=== PATIENT | female | born 1975 | race Caucasian/White ===

== ENCOUNTER 2016-06-03 12:28 | Emergency (ER) ==
[2016-06-03 12:43] VITALS: BP 120/90; TEMP 98.2; BMI 20.5
[2016-06-03] MEDS ORDERED: MORPHINE 4 MG/ML SYRINGE IVP STA (12:46)
[2016-06-03] MEDS ORDERED: ZOFRAN 4 MG/2 ML IVP STA (12:46)
[2016-06-03 13:05] LABS: BASOPHILS % (AUTO) 0.3 % (0.0-3.0); EOSINOPHILS # (AUTO) 0.3 K/ul (0.0-0.7); EOSINOPHILS % (AUTO) 2.8 % (0.0-7.0); HEMATOCRIT 38.7 % (37.0-47.0); HEMOGLOBIN 12.9 g/dl (12.0-16.0); LYMPHOCYTES # (AUTO) 3.4 K/uL (0.60-3.4); LYMPHOCYTES % (AUTO) 36.2 (10.0-50.0); MEAN CORPUSCULAR HEMOGLOBIN 32.1 pg (27.0-31.0); MEAN CORPUSCULAR HGB CONC 33.3 (31.8-35.4); MEAN CORPUSCULAR VOLUME 96.3 fl (81.0-99.0); MONOCYTES # (AUTO) 0.4 K/uL (0.4-2.0); NEUTROPHILS # (AUTO) 5.3 K/ul (2.0-6.9); NEUTROPHILS % (AUTO) 55.7; PLATELET COUNT 373 10^3/uL (140-440); RED BLOOD COUNT 4.02 10^6/ul (4.20-5.40); WHITE BLOOD COUNT 9.44 K/ul (4.6-10.2)
[2016-06-03 13:23] LABS: SERUM PREGNANCY INTERNAL QC INTERNAL QC VALID
[2016-06-03 13:36] LABS: ALANINE AMINOTRANSFERASE 23 U/L (12-78); ALBUMIN 3.7 g/dL (3.4-5.0); ALBUMIN/GLOBULIN RATIO 1.03; ALKALINE PHOSPHATASE 63 U/L (42-98); ASPARTATE AMINO TRANSFERASE 19 U/L (15-37); BILIRUBIN,TOTAL 0.22 mg/dL (0.00-1.20); BLOOD UREA NITROGEN 13 mg/dL (7-18); BUN/CREATININE RATIO 16.88; CARBON DIOXIDE 22 mmol/L (21-32); CHLORIDE 110 mmol/L (98-107); CREATINE KINASE 41 U/L; CREATININE 0.77 mg/dL (0.60-1.30); GLUCOSE 88 mg/dL (70-110); SODIUM 141 mmol/L (136-145); TOTAL PROTEIN 7.3 g/dL (6.4-8.2)
--- NOTE | 2016-06-03 14:35 | CT ---
EXAM: CTA chest HISTORY: Chest pain radiating to the back and under scapula bilaterally. Patient with history of max mpectomy COMPARISON: CT chest 07/10/2013 TECHNIQUE: CTA of the chest was performed from the lung apices to the upper abdomen after 125 ml of Omnipaque IV contrast was administered using PE protocol. 3-D imaging was also provided. FINDINGS: There is no filling defect in the pulmonary arteries to the level of the subsegmental pul monary arteries. The heart is normal without signs of ventricular strain. The aorta is unremarkabl e with no stenosis, dissection or aneurysm. The heart is unremarkable. There is no mediastinal or hilar lymphadenopathy. The thyroid is unremarkable. There is no pneumothorax or pleural effusion. There is mild apical pleural thickening. There is no consolidation, nodule or mass. There is no abnormal ground-glass. The airways are patent. Soft tissues in the upper abdomen are unremarkable. The osseous structures are unremarkable. IMPRESSION: 1. No acute abnormality of the aorta, dissection, stenosis or aneurysm. 2. No central pulmonary embolism. 3. No acute cardiopulmonary process or consolidation.
--- NOTE | 2016-06-03 14:48 | ED.PDOC ---
General ED Provider: Dr. WILFRIDO OLEARY Chief Complaint: Chest Pain Stated Complaint: chest pain Time Seen by Physician: 12:30 (may and robtana present at all times ) Mode of Arrival: Wheelchair Information Source: Patient Exam Limitations: No limitations Primary Care Provider: MARY BETH FREY Nursing and Triage Documentation Reviewed and Agree: Yes (no trauma ) Cardiovascular Complaint Exam - Chest Pain Complaint/Exam Onset: Gradual Duration: today Symptoms Are: Still present Timing: Constant Initial Severity: Moderate Current Severity: Moderate Location: Reports: Midsternal Pain Radiates: Reports: None Character: Reports: Aching Aggravating: Reports: None Alleviating: Reports: None Associated Signs and Symptoms: Denies: Diaphoresis, Nausea, Vomiting, Fever, Palpitations, Cough, Hemoptysis, Back pain, Abdominal pain, Dizziness, Short of air, Calf pain, Calf swelling Related History: Reports: Similar episode Related Surgical History: Reports: None History of Healthcare-Acquired Pneumonia: Reports: No AMI/ACS Risk Factors: Reports: None TAD Risk Factors: Reports: None Pulmonary Embolism Risk Factors: Reports: None Prior Care for this Complaint: No Recent Stress Test: No Recent Echo/LV Function: No JVD Present: No Subcutaneous Emphysema Present: No Diminshed Breath Sounds: No Reproducible Chest Wall Pain: No Bilateral Pulses Present: No Unequal Pulses Noted: No If Risk Factors for AMI/ACS Consider: EKG, Cardiac Enzymes Differential Diagnoses: ACS, Stable Angina, Unstable Angina, Aortic Aneurysm, Pulmonary Edema, Chest Wall Pain, GI Diseasae, Lower Resp. Infection, Pulmonary Embolism Quality Indicators For Acute IA or Cardiac Chest Pain: EKG in 10min. Quality Indicator For Non-Traumatic Chest Pain/Syncope: EKG Performed Review of Systems - Review Of Systems Constitutional: Reports: No symptoms Eyes: Reports: No symptoms Ears, Nose, Mouth, Throat: Reports: No symptoms Respiratory: Reports: No symptoms Cardiac: Reports: Chest pain GI: Reports: No symptoms : Reports: No symptoms Musculoskeletal: Reports: Back pain Skin: Reports: No symptoms Neurological: Reports: No symptoms Endocrine: Reports: No symptoms Hematologic/Lymphatic: Reports: No symptoms All Other Systems: Reviewed and Negative Past Medical History - Past Medical History Previously Healthy: Yes Endocrine: Reports: None Cardiovascular: Reports: None Respiratory: Reports: None Hematological: Reports: None Gastrointestinal: Reports: None Genitourinary: Reports: None Neuro/Psych: Reports: None Musculoskeletal: Reports: None Cancer: Reports: None Last Menstrual Period: 1 month ago - Surgical History General Surgical History: Reports: None - Family History Family History: Reports: None - Social History Smoking Status: Current every day smoker Hx Substance Use: No Alcohol Screening: None Physical Exam - Physical Exam Appearance: Well-appearing, No pain distress, Well-nourished Eyes: NELLI, EOMI, Conjunctiva clear ENT: Ears normal, Nose normal, Oropharynx normal Respiratory: Airway patent, Breath sounds clear, Breath sounds equal, Respirations nonlabored Cardiovascular: RRR, Pulses normal, No rub, No murmur GI/: Soft, Nontender, No masses, Bowel sounds normal, No Organomegaly Musculoskeletal: Normal strength, ROM intact, No edema, No calf tenderness Skin: Warm, Dry, Normal color Neurological: Sensation intact, Motor intact, Reflexes intact, Cranial nerves intact, Alert, Oriented Psychiatric: Affect appropriate, Mood appropriate Physician Notification - Case Discussed Physician Notified: pmd Time of Notification: 14:50 (may go home) Critical Care Note - Critical Care Note Total Time (mins): 0 Course - Course Hematology/Chemistry: 06/03/16 12:55 06/03/16 12:55 Orders, Labs, Meds: Lab Review 06/03/16 12:55 WBC 9.44 RBC 4.02 L Hgb 12.9 Hct 38.7 MCV 96.3 MCH 32.1 H MCHC 33.3 RDW Coeff of Michaela 12.8 Plt Count 373 Immature Gran % (Auto) 1.0 Neut % (Auto) 55.7 Lymph % (Auto) 36.2 [place] % (Auto) 4.0 Eos % (Auto) 2.8 Baso % (Auto) 0.3 Immature Gran # (Auto) 0.1 Neut # 5.3 Lymph # 3.4 [place] # 0.4 Eos # 0.3 Baso # 0.0 D-Dimer 0.26 Sodium 141 Potassium 4.0 Chloride 110 H Carbon Dioxide 22 Anion Gap 13.0 BUN 13 Creatinine 0.77 Estimated GFR (MDRD) 83.00 BUN/Creatinine Ratio 16.88 Glucose 88 Calcium 9.0 Total Bilirubin 0.22 AST 19 ALT 23 Alkaline Phosphatase 63 Total Creatine Kinase 41 Troponin I < 0.0100 B-Natriuretic Peptide 20 Total Protein 7.3 Albumin 3.7 Globulin 3.6 Albumin/Globulin Ratio 1.03 Serum , Qual Negative Orders Category Date Time Status EKG-(ED ONLY) Stat CARDIO 06/03/16 12:46 Completed EKG-(ED ONLY) Stat CARDIO 06/03/16 14:01 Ordered NPO REMINDER: IMAGING ONCE CARE 06/03/16 12:48 Active ED IV/MEDIPORT/POWERPORT .ONCE EMERGENCY 06/03/16 12:46 Active B-TYPE NATRIURETIC PEPTIDE Stat LAB 06/03/16 12:55 Completed CBC W/ AUTO DIFF Stat LAB 06/03/16 12:55 Completed COMPREHENSIVE METABOLIC PANEL Stat LAB 06/03/16 12:55 Completed CREATINE KINASE Stat LAB 06/03/16 12:55 Completed D-DIMER Stat LAB 06/03/16 12:55 Completed SERUM Stat LAB 06/03/16 12:55 Completed TROPONIN I Stat LAB 06/03/16 12:55 Completed 0.9 % Sodium Chloride [Saline Flush] MEDS 06/03/16 12:46 Active 1 syr IVF PRN PRN Morphine Sulfate [Morphine 4 mg/ml Syringe] MEDS 06/03/16 12:46 Discontinued 4 mg IVP ONCE STA Ondansetron HCl/Pf [Zofran 4 mg/2 ml] MEDS 06/03/16 12:46 Discontinued 4 mg IVP ONCE STA CHEST, 1V AP ONLY Stat RADS 06/03/16 12:45 Ordered CTA ANGIO CHEST Stat RADS 06/03/16 12:47 Ordered Medications Generic Name Dose Route Start Last Admin Trade Name Freq PRN Reason Stop Dose Admin Sodium Chloride 1 syr 06/03/16 12:46 06/03/16 14:08 Saline Flush IVF 1 syr PRN PRN Administration To flush IV Discontinued Medications Generic Name Dose Route Start Last Admin Trade Name Freq PRN Reason Stop Dose Admin Morphine Sulfate 4 mg 06/03/16 12:46 06/03/16 13:09 Morphine 4 Mg/Ml Syringe IVP 06/03/16 12:47 4 mg ONCE STA Administration Ondansetron HCl 4 mg 06/03/16 12:46 06/03/16 13:09 Zofran 4 Mg/2 Ml IVP 06/03/16 12:47 4 mg ONCE STA Administration Vital Signs: Temp Pulse Resp BP Pulse Ox 06/03/16 12:28 98.2 F 90 20 120/90 100 MICHELLE Risk Score MICHELLE Risk Score: Risk Score Odds of by 30D 0 0.1 (0.1-0.2) 1 0.3 (0.2-0.3) 2 0.4 (0.3-0.5) 3 0.7 (0.6-0.9) 4 1.2 (1.0-1.5) 5 2.2 (1.9-2.6) 6 3.0 (2.5-3.6) 7 4.8 (3.8-6.1) Departure - Departure Time of Disposition: 14:50 Disposition: HOME SELF-CARE Discharge Problem: Chest pain Instructions: Angina (ED), Chest Pain (ED), Noncardiac Chest Pain (ED), Chest Wall Pain (ED), Pleurisy (ED) Condition: Good Pt referred to PMD for follow-up: No Additional Instructions: Please call your Family Physician as soon as possible to schedule a follow-up appointment. Allergies/Adverse Reactions: Allergies No Known Allergies Allergy (Verified 06/03/16 12:41) Home Medications: Ambulatory Orders Buspirone HCl 5 mg PO BID 07/10/13 Topiramate [Topamax] 200 mg PO BID 07/10/13 Dextroamphetamine/Amphetamine [Adderall 20 mg Tablet] 20 mg PO DAILY 06/03/16 Gabapentin [Neurontin] 300 mg PO TID 06/03/16 Oseltamivir Phosphate [Tamiflu] 75 mg PO Q12HR 06/03/16
== END 2016-06-03 15:10 | disposition home or self-care (01) ==
LOC: ED 12:28
DX: R07.9 Chest pain, unspecified (principal); F17.210 Nicotine dependence, cigarettes, uncomplicated; Z79.899 Other long term (current) drug therapy
CPT/HCPCS: 36415; 80053; 82550; 83880; 84484; 84703; 85025; 85379; 93005; 93010; 96374; 96375; 99283